=== PATIENT | male | born 1940 | race Caucasian/White ===

== ENCOUNTER → 2017-05-12 | Outpatient (CLI) | payer MEDICARE, OTHER | END | disposition home or self-care (01) | LOC: KCIC MRI 14:15 | DX: M48.061 Spinal stenosis, lumbar region without neurogenic claudication (principal); M51.26 Other intervertebral disc displacement, lumbar region; M51.27 Other intervertebral disc displacement, lumbosacral region; M41.86 Other forms of scoliosis, lumbar region; M47.896 Other spondylosis, lumbar region; M25.78 Osteophyte, vertebrae; M51.47 Schmorl's nodes, lumbosacral region | CPT/HCPCS: 72148 ==

== ENCOUNTER → 2017-06-14 | Outpatient (CLI) | payer MEDICARE, OTHER ==
[~2017-06-14] MED LIST: IOHEXOL 180 MG/ML 10 ML VIAL.; methylPREDNISolone ACETATE 40 MG/ML VIAL.; methylPREDNISolone ACETATE 80 MG/ML VIAL.
== END ==
LOC: PNCL 09:40
DX: M51.16 Intervertebral disc disorders with radiculopathy, lumbar region (principal); M48.061 Spinal stenosis, lumbar region without neurogenic claudication; E11.9 Type 2 diabetes mellitus without complications; I10 Essential (primary) hypertension; I25.10 Atherosclerotic heart disease of native coronary artery without angina pectoris; K21.9 Gastro-esophageal reflux disease without esophagitis; M19.90 Unspecified osteoarthritis, unspecified site; Z85.46 Personal history of malignant neoplasm of prostate; Z95.5 Presence of coronary angioplasty implant and graft; Z88.1 Allergy status to other antibiotic agents; Z88.6 Allergy status to analgesic agent; Z82.49 Family history of ischemic heart disease and other diseases of the circulatory system; Z83.3 Family history of diabetes mellitus; Z82.3 Family history of stroke; Z79.82 Long term (current) use of aspirin; Z79.84 Long term (current) use of oral hypoglycemic drugs; Z79.899 Other long term (current) drug therapy
CPT/HCPCS: 62323; J1030; J1040; Q9965

== ENCOUNTER → 2017-06-28 | Outpatient (CLI) | payer MEDICARE, OTHER | END | disposition home or self-care (01) | LOC: PNCL 09:40 | DX: M51.16 Intervertebral disc disorders with radiculopathy, lumbar region (principal); M48.061 Spinal stenosis, lumbar region without neurogenic claudication; Z79.82 Long term (current) use of aspirin; Z79.899 Other long term (current) drug therapy | CPT/HCPCS: G0463 ==

== ENCOUNTER 2017-09-14 07:49 | Emergency (ER) | payer MEDICARE, OTHER ==
[2017-09-14] MEDS: ASPIRIN 325 MG TABLET PO ×2 (08:47)
[2017-09-14] MEDS: IV NORMAL SALINE 1000ML BAG 1,000 ML IV ×2 (08:48)
[2017-09-14 08:51] LABS: ADD MAN DIFF? NO
[2017-09-14] MEDS: fentaNYL PF VIAL 100 MCG/2 ML VIAL IV ×6 (08:52→10:43)
[2017-09-14 08:57] LABS: BASO # 0.2 x10^3/uL (0.0-0.2); BASO % 3 % (0-3); EOS # 0.6 x10^3/uL (0.0-0.7); EOS % 8 % (0-3); HEMOGLOBIN 14.5 g/dL (13.0-17.5); LYMPH # 1.9 x10^3/uL (1.0-4.8); LYMPH % 26 % (24-48); MEAN CORPUSCULAR HEMOGLOBIN 34 pg (25-35); MEAN CORPUSCULAR HGB CONC 35 g/dL (31-37); MEAN CORPUSCULAR VOLUME 99 fL (79-100); MONO # 0.8 x10^3/uL (0.0-1.1); MONO % 11 % (0-9); NEUT # 3.9 x10^3uL (1.8-7.7); NEUT % 52 % (31-73); PLATELET COUNT 229 x10^3/uL (140-400); RED BLOOD COUNT 4.26 x10^6/uL (4.30-5.70); RED CELL DISTRIBUTION WIDTH 13.3 % (11.5-14.5); WHITE BLOOD COUNT 7.4 x10^3/uL (4.0-11.0)
[2017-09-14] MEDS: LABETALOL 20 MG/4 ML DISP.SYRIN. IVP ×2 (08:58)
[2017-09-14 09:04] LABS: PROTHROMBIN TIME PATIENT 12.5 SEC (11.7-14.0)
[2017-09-14 09:05] LABS: ANION GAP 11 (6-14); BLOOD UREA NITROGEN 14 mg/dL (8-26); BUN/CREATININE RATIO 10 (6-20); CALCIUM 10.4 mg/dL (8.5-10.1); CARBON DIOXIDE 26 mmol/L (21-32); CHLORIDE 101 mmol/L (98-107); CREATININE 1.4 mg/dL (0.7-1.3); GFR 48.9; GLUCOSE 213 mg/dL (70-99); SODIUM 138 mmol/L (136-145)
[2017-09-14 09:11] LABS: ALBUMIN 4.2 g/dL (3.4-5.0); ALBUMIN/GLOBULIN RATIO 1.1 (1.0-1.7); ALK PHOS 86 U/L (46-116); ALT (SGPT) 34 U/L (16-63); AST (SGOT) 40 U/L (15-37); LIPASE 101 U/L (73-393); MAGNESIUM 2.1 mg/dL (1.8-2.4); TOTAL BILIRUBIN 0.7 mg/dL (0.2-1.0); TOTAL PROTEIN 8.1 g/dL (6.4-8.2)
[2017-09-14 09:15] LABS: TROPONINI 2.818 ng/mL (0.000-0.055)
[2017-09-14] MEDS ORDERED: CONTRAST GIVEN. MC ×2 (09:15)
[2017-09-14 09:16] LABS: D-DIMER 1.17 ug/mlFEU (0.00-0.50)
[2017-09-14 09:19] LABS: NT-PRO BNP 735 pg/mL (0-449)
[2017-09-14 09:19] LABS: CKMB INDEX 5.7 % (0-4); CKMB MASS 16.6 ng/mL (0.0-3.6); CREATINE KINASE 289 U/L (39-308)
[2017-09-14] MEDS: IOHEXOL 300 MG/ML 100ML VIAL. IV ×2 (09:20)
[2017-09-14] MEDS ORDERED: ANTI-COAG MONITOR BY PHARMACY. MC ×2 (09:45)
[2017-09-14] MEDS ORDERED: HEPARIN for IV BOLUS 10,000 UNIT/10 ML VIAL. IV ×2 (09:45)
[2017-09-14] MEDS: HEPARIN for IV BOLUS 10,000 UNIT/10 ML VIAL. IV ×2 (09:55)
[2017-09-14] MEDS: HEPARIN 25,000UTS/500ML PREMIX 500 ML IV ×2 (09:59)
== END 2017-09-14 10:38 | disposition short-term general hospital (02) ==
LOC: ER 07:49
DX: I24.9 Acute ischemic heart disease, unspecified (principal); I21.9 Acute myocardial infarction, unspecified; E78.00 Pure hypercholesterolemia, unspecified; E11.9 Type 2 diabetes mellitus without complications; I10 Essential (primary) hypertension; I25.10 Atherosclerotic heart disease of native coronary artery without angina pectoris; Z79.82 Long term (current) use of aspirin; Z95.5 Presence of coronary angioplasty implant and graft; Z88.1 Allergy status to other antibiotic agents; Z88.5 Allergy status to narcotic agent
CPT/HCPCS: 36415; 71045; 71275; 80053; 82553; 83690; 83735; 83880; 84484; 85025; 85379; 85610; 93005; 96365; 96375; 96376; 99291-25; J1644; J3010; J3490; J7030; Q9967

== ENCOUNTER 2019-01-05 14:03 | Inpatient (IN) | payer MEDICARE, OTHER ==
[~2019-01-05] VITALS: Ht 170.2 cm; Wt 85.4 kg
[~2019-01-05 14:03] MED LIST changes: +ASPI-482 PO; +ASPI325T8 PO; +ATOR40TA59 PO; +GABA300C18 PO; +GLIP5TAB22 PO; -IOHEXOL 180 MG/ML 10 ML VIAL.; +LISI-334 PO; +METO50TA6 PO; +OMEP40CA45 PO; +TRAZ-86 PO; -methylPREDNISolone ACETATE 40 MG/ML VIAL.; -methylPREDNISolone ACETATE 80 MG/ML VIAL.
[2019-01-05] MEDS ORDERED: METOPROLOL TARTRATE 5 MG/5 ML VIAL. IVP ONE (14:15)
--- NOTE | 2019-01-05 14:21 | PHYS DOC ---
Past Medical History Past Medical History: CAD, Diabetes-Type II, High Cholesterol, Hypertension Past Surgical History: Angioplasty, Coronary Bypass Surgery, Knee Replacement, Tonsillectomy Additional Past Surgical Histo: cath with stents, right rotator cuff, left endarterectomy. rt elbow,prostat Alcohol Use: None Drug Use: None Adult General HPI HPI Patient is an 78-year-old male, with a past cardiac history, who presents to the emergency department for evaluation. He states that about an hour prior to arrival, he began experiencing some tightness in his chest, with radiation towards his left arm. The pain is somewhat similar, but not quite as intense, as his prior cardiac pain. The patient has had dyspnea on exertion, as well as exacerbation of this chest pain with exertion, and his chest pain did improve with some nitroglycerin. He denies shortness of breath at rest.He was administered aspirin by EMS. He has not had any cough, pleuritic pain, fevers, or chills. Other than as stated above, there are no alleviating or exacerbating factors to his symptoms. Review of Systems Review of Systems Constitutional: Denies fever or chills [] Eyes: Denies change in visual acuity, redness, or eye pain [] HENT: Denies nasal congestion or sore throat [] Respiratory: Denies cough or shortness of breath at rest [] Cardiovascular: No additional information not addressed in HPI [] GI: Denies abdominal pain, nausea, vomiting, bloody stools or diarrhea [] : Denies dysuria or hematuria [] Musculoskeletal: Denies back pain or joint pain [] Integument: Denies rash or skin lesions [] Neurologic: Denies headache, focal weakness or sensory changes [] Endocrine: Denies polyuria or polydipsia [] All other systems were reviewed and found to be within normal limits, except as documented in this note. Current Medications Current Medications Current Medications Medications (Trade) Dose Ordered Sig/Dede Start Time Stop Time Status Last Admin Dose Admin Heparin Sodium (Porcine) (Heparin Sodium) 4,000 unit 1X ONCE 01/05/19 15:15 01/05/19 15:16 Heparin Sodium/ Dextrose 500 ml @ 20 mls/hr CONT PRN 01/05/19 15:15 Metoprolol Tartrate (Lopressor Vial) 5 mg 1X ONCE 01/05/19 14:15 01/05/19 14:20 DC 01/05/19 14:43 5 MG Nitroglycerin (Nitrostat) 0.4 mg PRN Q5MIN PRN 01/05/19 14:15 01/06/19 14:14 Allergies Allergies Allergies Coded Allergies Type Severity Reaction Last Updated Verified Penicillins Allergy Intermediate 01/05/19 Yes erythromycin base Allergy Intermediate 06/14/17 Yes morphine Allergy Intermediate 06/14/17 Yes Physical Exam Physical Exam PHYSICAL EXAM: CONSTITUTIONAL: Well developed, well nourished HEAD: normocephalic, atraumatic EENT: PERRL, EOMI. Conjunctivae normal color, sclerae non-icteric; moist mucous membranes. NECK: Supple, non-tender; no meningismus. LUNGS: Lungs CTA, breathing even and unlabored. Normal air movement. HEART: Regular rate and rhythm, no murmur CHEST: No deformity; non-tender ABDOMEN: The abdomen is soft, and non-tender, no masses or bruits. EXTREM: Normal ROM; no deformity, no calf tenderness. Normal pulses palpable in all extremities. There is no pedal edema. SKIN: No rash; no diaphoresis NEURO: Alert; normal speech and cognition; CN's grossly intact; strength grossly intact without focal deficit. BACK: No CVA TTP. Current Patient Data Vital Signs Vital Signs Date Time Temp Pulse Resp B/P (MAP) Pulse Ox O2 Delivery O2 Flow Rate FiO2 01/05/19 14:43 68 165/78 01/05/19 14:03 99.0 18 Room Air 97.0 99.0 Lab Values Laboratory Tests Test 01/05/19 14:15 White Blood Count 9.8 x10^3/uL (4.0-11.0) Red Blood Count 4.16 x10^6/uL (4.30-5.70) L Hemoglobin 13.4 g/dL (13.0-17.5) Hematocrit 39.7 % (39.0-53.0) Mean Corpuscular Volume 96 fL (79-100) Mean Corpuscular Hemoglobin 32 pg (25-35) Mean Corpuscular Hemoglobin Concent 34 g/dL (31-37) Red Cell Distribution Width 13.9 % (11.5-14.5) Platelet Count 256 x10^3/uL (140-400) Neutrophils (%) (Auto) 65 % (31-73) Lymphocytes (%) (Auto) 20 % (24-48) L Monocytes (%) (Auto) 9 % (0-9) Eosinophils (%) (Auto) 5 % (0-3) H Basophils (%) (Auto) 0 % (0-3) Neutrophils # (Auto) 6.4 x10^3/uL (1.8-7.7) Lymphocytes # (Auto) 2.0 x10^3/uL (1.0-4.8) Monocytes # (Auto) 0.9 x10^3/uL (0.0-1.1) Eosinophils # (Auto) 0.5 x10^3/uL (0.0-0.7) Basophils # (Auto) 0.0 x10^3/uL (0.0-0.2) Prothrombin Time 11.9 SEC (11.7-14.0) Prothrombin Time INR 0.9 (0.8-1.1) Sodium Level 144 mmol/L (136-145) Potassium Level 3.5 mmol/L (3.5-5.1) Chloride Level 105 mmol/L (98-107) Carbon Dioxide Level 29 mmol/L (21-32) Anion Gap 10 (6-14) Blood Urea Nitrogen 11 mg/dL (8-26) Creatinine 1.4 mg/dL (0.7-1.3) H Estimated GFR (Cockcroft-Gault) 48.8 BUN/Creatinine Ratio 8 (6-20) Glucose Level 192 mg/dL (70-99) H Calcium Level 9.7 mg/dL (8.5-10.1) Magnesium Level 2.2 mg/dL (1.8-2.4) Total Bilirubin 0.6 mg/dL (0.2-1.0) Aspartate Amino Transferase (AST) 26 U/L (15-37) Alanine Aminotransferase (ALT) 24 U/L (16-63) Alkaline Phosphatase 85 U/L (46-116) Creatine Kinase 209 U/L (39-308) Creatine Kinase MB (Mass) 2.8 ng/mL (0.0-3.6) Creatine Kinase MB Relative Index 1.3 % (0-4) Troponin I Quantitative 0.326 ng/mL (0.000-0.055) QK-Thi-V-Type Natriuretic Peptide 1172 pg/mL (0-449) H Total Protein 8.9 g/dL (6.4-8.2) H Albumin 4.0 g/dL (3.4-5.0) Albumin/Globulin Ratio 0.8 (1.0-1.7) L Lipase 79 U/L (73-393) Laboratory Tests 01/05/19 14:15 Laboratory Tests 01/05/19 14:15 EKG EKG []Normal sinus rhythm a rate of 72 beats for minute, normal axis, normal intervals, motion artifact is present, there are nonspecific ST/T changes present without acute ischemic changes noted. Radiology/Procedures Radiology/Procedures [] PROCEDURE: PORTABLE CHEST 1V EXAM: Chest, single view. HISTORY: Chest pain. COMPARISON: CT angiogram dated 09/14/2017. FINDINGS: A frontal view of the chest is obtained. There is no infiltrate, pleural effusion or pneumothorax. There is a stable prominent cardiac silhouette and evidence of prior CABG. There are surgical clips within the left neck. There are surgical anchors within the left humeral head. IMPRESSION: No acute pulmonary finding. Course & Med Decision Making Course & Med Decision Making Pertinent Labs and Imaging studies reviewed. (See chart for details) []3:15 PM: The patient's condition remains stable. Cardiology was consulted, secondary to the elevated troponin, the patient will be started on a heparin drip, hospitalist will admit the patient. CRITICAL CARE TIME: [40] Minutes, excluding any procedures and care of other patients. Dragon Disclaimer Dragon Disclaimer This electronic medical record was generated, in whole or in part, using a voice recognition dictation system. Departure Departure Impression: Primary Impression: Chest pain Additional Impression: Acute coronary syndrome Disposition: 09 ADMITTED INPATIENT Admitting Physician: STACIE Condition: GUARDED Referrals: JANIE WAGNER MD (PCP) Problem Qualifiers ARIANNA HANKINS MD Jan 05, 2019 14:21
[2019-01-05 14:30] LABS: BASO % 0 % (0-3); EOS # 0.5 x10^3/uL (0.0-0.7); EOS % 5 % (0-3); HEMATOCRIT 39.7 % (39.0-53.0); HEMOGLOBIN 13.4 g/dL (13.0-17.5); LYMPH % 20 % (24-48); MEAN CORPUSCULAR HEMOGLOBIN 32 pg (25-35); MEAN CORPUSCULAR HGB CONC 34 g/dL (31-37); MEAN CORPUSCULAR VOLUME 96 fL (79-100); MONO # 0.9 x10^3/uL (0.0-1.1); MONO % 9 % (0-9); NEUT # 6.4 x10^3/uL (1.8-7.7); NEUT % 65 % (31-73); PLATELET COUNT 256 x10^3/uL (140-400); RED BLOOD COUNT 4.16 x10^6/uL (4.30-5.70); RED CELL DISTRIBUTION WIDTH 13.9 % (11.5-14.5); WHITE BLOOD COUNT 9.8 x10^3/uL (4.0-11.0)
[2019-01-05 14:41] LABS: CALCIUM 9.7 mg/dL (8.5-10.1); CREATININE 1.4 mg/dL (0.7-1.3); GFR 48.8; POTASSIUM 3.5 mmol/L (3.5-5.1)
[2019-01-05 14:42] LABS: PROTHROMBIN TIME PATIENT 11.9 SEC (11.7-14.0)
[2019-01-05 14:47] LABS: ALBUMIN/GLOBULIN RATIO 0.8 (1.0-1.7); MAGNESIUM 2.2 mg/dL (1.8-2.4); TOTAL BILIRUBIN 0.6 mg/dL (0.2-1.0); TOTAL PROTEIN 8.9 g/dL (6.4-8.2)
--- NOTE | 2019-01-05 15:06 | RAD ---
EXAM: Chest, single view. HISTORY: Chest pain. COMPARISON: CT angiogram dated 09/14/2017. FINDINGS: A frontal view of the chest is obtained. There is no infiltrate, pleural effusion or pneumothorax. There is a stable prominent cardiac silhouette and evidence of prior CABG. There are surgical clips within the left neck. There are surgical anchors within the left humeral head. IMPRESSION: No acute pulmonary finding. Electronically signed by: Purnima Wiggins MD (01/05/2019 3:03 PM) [place] [id number]
[2019-01-05] MEDS ORDERED: HEPARIN 25,000UTS/500ML PREMIX 500 ML IV PRN (15:15)
[2019-01-05] MEDS ORDERED: HEPARIN for IV BOLUS 10,000 UNIT/10 ML VIAL. IV ONE ×2 (15:15→17:30)
--- NOTE | 2019-01-05 15:16 | PDOC2 ---
NANO GUADALUPE INTERNAL CONTROLS CONSULTANT 01/05/19 1516: CARDIAC CONSULT DATE OF CONSULT Date of Consult DATE: 01/05/19 TIME: 15:13 REASON FOR CONSULT Reason for Consult: NSTEMI REFERRING PHYSICIAN Referring Physician: Clemencia SOURCE Source: Chart review, Patient HISTORY OF PRESENT ILLNESS HISTORY OF PRESENT ILLNESS This is a pleasant 78 yo male admitted for complains of chest pain. Reports that he has appointment with is PCP 11AM which he did not known so he was rushing to go t his appointment thinking that his appointment is at 1PM. He got there and he started having left chest tightness with left shoulder discomfort and tingling to his left hand. He was having SOA and felt nauseated. He was given SL NTG via EMS and ASA. His symptoms went away and came back in ED and another SL NTG was given. His BP is slightly elevated. He takes and plavix and was given coumadin at some point as well. He had stens placed with complex stenting per his description 4 months ago. He had CABG in the past. He sees Dr. Wallace in . PAST MEDICAL HISTORY Cardiovascular: CAD, HTN, Hyperlipidemia, Other (carotid artery disease) Pulmonary: Asthma CENTRAL NERVOUS SYSTEM: Other (No pertinent history) GI: No pertinent hx Heme/Onc: No pertinent hx Hepatobiliary: No pertinent hx Psych: No pertinent hx Musculoskeletal: Osteoarthritis Rheumatologic: No pertinent hx Infectious disease: No pertinent hx ENT: No pertinent hx Renal/: Chronic renal insuff Endocrine: Diabetes (2) Dermatology: No pertinent hx PAST SURGICAL HISTORY Past Surgical History: Arthroscopy (bilateral RTC repair), CABG, Total knee replacement (bilateral), Tonsillectomy, Other (PCI/stents; LCEA) FAMILY HISTORY Family History: Coronary Artery Disease SOCIAL HISTORY Smoke: No ALCOHOL: none Drugs: None Lives: with Family CURRENT MEDICATIONS CURRENT MEDICATIONS Current Medications Medications (Trade) Dose Ordered Sig/Dede Route PRN Reason Start Time Stop Time Status Last Admin Dose Admin Metoprolol Tartrate (Lopressor Vial) 5 mg 1X ONCE IVP 01/05/19 14:15 01/05/19 14:20 DC 01/05/19 14:43 ALLERGIES ALLERGIES: Coded Allergies: Penicillins (Verified Allergy, Intermediate, 01/05/19) erythromycin base (Verified Allergy, Intermediate, 06/14/17) morphine (Verified Allergy, Intermediate, 06/14/17) ROS Review of System 14 point ROS evaluated with pertinent positives noted per HPI PHYSICAL EXAM General: Alert, Oriented X3, Cooperative, No acute distress HEENT: Atraumatic, Mucous membr. moist/pink Lungs: Clear to auscultation, Normal air movement Heart: Regular rate (SR), Normal S1, Normal S2, Other (3/6 systolic murmur to BHUMIKA border) Abdomen: Soft, No tenderness Extremities: No cyanosis, No edema Skin: No significant lesion Neuro: Normal speech, Sensation intact Psych/Mental Status: Mental status NL, Mood NL MUSCULOSKELETAL: Osteoarthritic changes both hands VITALS/I&O VITALS/I&O: Vital Signs Date Time Temp Pulse Resp B/P (MAP) Pulse Ox O2 Delivery O2 Flow Rate FiO2 01/05/19 14:43 68 165/78 01/05/19 14:03 99.0 18 Room Air 97.0 99.0 LABS Lab: Laboratory Tests Test 01/05/19 14:15 White Blood Count 9.8 x10^3/uL (4.0-11.0) Red Blood Count 4.16 x10^6/uL (4.30-5.70) L Hemoglobin 13.4 g/dL (13.0-17.5) Hematocrit 39.7 % (39.0-53.0) Mean Corpuscular Volume 96 fL (79-100) Mean Corpuscular Hemoglobin 32 pg (25-35) Mean Corpuscular Hemoglobin Concent 34 g/dL (31-37) Red Cell Distribution Width 13.9 % (11.5-14.5) Platelet Count 256 x10^3/uL (140-400) Neutrophils (%) (Auto) 65 % (31-73) Lymphocytes (%) (Auto) 20 % (24-48) L Monocytes (%) (Auto) 9 % (0-9) Eosinophils (%) (Auto) 5 % (0-3) H Basophils (%) (Auto) 0 % (0-3) Neutrophils # (Auto) 6.4 x10^3/uL (1.8-7.7) Lymphocytes # (Auto) 2.0 x10^3/uL (1.0-4.8) Monocytes # (Auto) 0.9 x10^3/uL (0.0-1.1) Eosinophils # (Auto) 0.5 x10^3/uL (0.0-0.7) Basophils # (Auto) 0.0 x10^3/uL (0.0-0.2) Prothrombin Time 11.9 SEC (11.7-14.0) Prothrombin Time INR 0.9 (0.8-1.1) Sodium Level 144 mmol/L (136-145) Potassium Level 3.5 mmol/L (3.5-5.1) Chloride Level 105 mmol/L (98-107) Carbon Dioxide Level 29 mmol/L (21-32) Anion Gap 10 (6-14) Blood Urea Nitrogen 11 mg/dL (8-26) Creatinine 1.4 mg/dL (0.7-1.3) H Estimated GFR (Cockcroft-Gault) 48.8 BUN/Creatinine Ratio 8 (6-20) Glucose Level 192 mg/dL (70-99) H Calcium Level 9.7 mg/dL (8.5-10.1) Magnesium Level 2.2 mg/dL (1.8-2.4) Total Bilirubin 0.6 mg/dL (0.2-1.0) Aspartate Amino Transferase (AST) 26 U/L (15-37) Alanine Aminotransferase (ALT) 24 U/L (16-63) Alkaline Phosphatase 85 U/L (46-116) Creatine Kinase 209 U/L (39-308) Creatine Kinase MB (Mass) 2.8 ng/mL (0.0-3.6) Creatine Kinase MB Relative Index 1.3 % (0-4) Troponin I Quantitative 0.326 ng/mL (0.000-0.055) WV-Ale-J-Type Natriuretic Peptide 1172 pg/mL (0-449) H Total Protein 8.9 g/dL (6.4-8.2) H Albumin 4.0 g/dL (3.4-5.0) Albumin/Globulin Ratio 0.8 (1.0-1.7) L Lipase 79 U/L (73-393) Laboratory Tests 01/05/19 14:15 Laboratory Tests 01/05/19 14:15 ASSESSMENT/PLAN ASSESSMENT/PLAN 1. NTSEMI 2. CAD: past CABG. PCI/complex stents 4 months ago 3. HTN: labile 4. HLP 5. DM2 6. Obesity 7. Warfarin therapy: claims taking warfarin but possibly DCd a while back since INR is 0.9 and manages his meds. No indication per hx. Recommendations 1. LHC today, risks and benefits discussed and agreeable to proceed 2. ASA. NTG. Heparin drip 3. Will reeval meds post LHC. Continue with secondary prevention measures. 4. Labetolol IV PRN 5. TTE, lipids, TSH NIEVES ARNOLD MD 01/06/192121: CARDIAC CONSULT ASSESSMENT/PLAN ASSESSMENT/PLAN Late entry for 01/05/2019 Pt. seen and examined. Agree with above FILM DEVELOPER note. LHC with recurrent ISR. s/p PCI and PTCA Needs to comply with medical therapy. NANO GUADALUPE APRN Jan 05, 2019 15:16 NIEVES ARNOLD MD Jan 06, 2019 21:22
[2019-01-05] MEDS: NITROGLYCERIN SUBLINGUAL 0.4 MG BOTTLE OF 25. SL PRN (15:26)
--- NOTE | 2019-01-05 15:29 | PDOC1 ---
History and Physical Date of Admission Date of Admission DATE: 01/05/19 TIME: 15:28 Identification/Chief Complaint Chief Complaint SEEN IN ER , 78-year-old male, with a past cardiac history, who presents to the emergency department for evaluation. states that about an hour prior to arrival, he began experiencing some tightness in his chest, with radiation towards his left arm. The pain is somewhat similar, but not quite as intense, as his prior cardiac pain. patient has had dyspnea on exertion, as well as exacerbation of this chest pain with exertion, and his chest pain did improve with some nitroglycerin. He denies shortness of breath at rest.He was administered aspirin by EMS. He has not had any cough, pleuritic pain, fevers, or chills Past Medical History Past Medical History Past Medical History Past Medical History: CAD, Diabetes-Type II, High Cholesterol, Hypertension Past Surgical History: Angioplasty, Coronary Bypass Surgery, Knee Replacement, Tonsillectomy Additional Past Surgical Histo: cath with stents, right rotator cuff, left endarterectomy. rt elbow,prostat Alcohol Use: None Drug Use: None FHX OBESITY Cardiovascular: CAD, HTN, Hyperlipidemia, Other (carotid artery disease) Musculoskeletal: Osteoarthritis Infectious disease: No pertinent hx Endocrine: Diabetes (2) Past Surgical History Past Surgical History: Arthroscopy (Right RTC repair), CABG, Total knee replacement, Tonsillectomy, Other (PCI/stents; LCEA) Family History Family History: High Cholestrol, Hypertension Social History Smoke: No ALCOHOL: none Drugs: None Current Problem List Problem List Problems Medical Problems: (1) Acute coronary syndrome Status: Acute (2) Chest pain Status: Acute Current Medications Current Medications Current Medications Nitroglycerin (Nitrostat) 0.4 mg PRN Q5MIN PRN SL CP RATING > 1/10 Last administered on 01/05/19at 15:26; Start 01/05/19 at 14:15; Stop 01/06/19 at 14:14 Metoprolol Tartrate (Lopressor Vial) 5 mg 1X ONCE IVP Last administered on 01/05/19at 14:43; Start 01/05/19 at 14:15; Stop 01/05/19 at 14:20; Status DC Heparin Sodium (Porcine) (Heparin Sodium) 4,000 unit 1X ONCE IV Last administered on 01/05/19at 15:23; Start 01/05/19 at 15:15; Stop 01/05/19 at 15:16; Status DC Heparin Sodium/ Dextrose 500 ml @ 20 mls/hr CONT PRN IV SEE COMMENTS Last administered on 01/05/19at 15:25; Start 01/05/19 at 15:15 Active Scripts Active Reported Aspirin 325 Mg Tablet 1 Tab PO DAILY Trazodone Hcl 100 Mg Tablet 1 Tab PO QHS Omeprazole 40 Mg Capsule.dr 1 Cap PO DAILY Metoprolol Tartrate 50 Mg Tablet 1 Tab PO BID Lisinopril 20 Mg Tablet 1 Tab PO BID Glipizide Er (Glipizide) 5 Mg Tab.er.24 1 Tab PO DAILY Gabapentin 300 Mg Capsule 300 Mg PO BID Atorvastatin Calcium 40 Mg Tablet 1 Tab PO DAILY Allergies Allergies: Coded Allergies: Penicillins (Verified Allergy, Intermediate, 01/05/19) erythromycin base (Verified Allergy, Intermediate, 06/14/17) morphine (Verified Allergy, Intermediate, 06/14/17) ROS Review of System Review of Systems Review of Systems Constitutional: Denies fever or chills [] Eyes: Denies change in visual acuity, redness, or eye pain [] HENT: Denies nasal congestion or sore throat [] Respiratory: Denies cough or shortness of breath at rest [] Cardiovascular: No additional information not addressed in HPI [] GI: Denies abdominal pain, nausea, vomiting, bloody stools or diarrhea [] : Denies dysuria or hematuria [] Musculoskeletal: Denies back pain or joint pain [] Integument: Denies rash or skin lesions [] Neurologic: Denies headache, focal weakness or sensory changes [] Endocrine: Denies polyuria or polydipsia [] 14 PT systems were reviewed and found to be within normal limits, except as documented . Cardiovascular: yes Chest Pain Physical Exam Physical Exam Physical Exam Physical Exam PHYSICAL EXAM: CONSTITUTIONAL: Well developed, well nourished HEAD: normocephalic, atraumatic EENT: PERRL, EOMI. Conjunctivae normal color, sclerae non-icteric; moist mucous membranes. NECK: Supple, non-tender; no meningismus. LUNGS: Lungs CTA, breathing even and unlabored. Normal air movement. HEART: Regular rate and rhythm, no murmur CHEST: No deformity; non-tender ABDOMEN: The abdomen is soft, and non-tender, no masses or bruits. EXTREM: Normal ROM; no deformity, no calf tenderness. Normal pulses palpable in all extremities. There is no pedal edema. SKIN: No rash; no diaphoresis NEURO: Alert; normal speech and cognition; CN's grossly intact; strength grossly intact without focal deficit. BACK: No CVA TTP. General: Alert, Oriented X3, Cooperative, No acute distress HEENT: EOMI, Mucous membr. moist/pink Lungs: Normal air movement Abdomen: Normal bowel sounds, Soft Rectal Exam: not examined PELVIC: Examination not indicated Extremities: No cyanosis Neuro: Normal speech, Cranial nerves 3-12 NL Psych/Mental Status: Mental status NL, Mood NL Vitals Vitals Vital Signs Date Time Temp Pulse Resp B/P (MAP) Pulse Ox O2 Delivery O2 Flow Rate FiO2 01/05/19 15:26 65 173/80 01/05/19 14:03 99.0 18 Room Air 97.0 99.0 Labs Labs Laboratory Tests Test 01/05/19 14:15 White Blood Count 9.8 x10^3/uL (4.0-11.0) Red Blood Count 4.16 x10^6/uL (4.30-5.70) Hemoglobin 13.4 g/dL (13.0-17.5) Hematocrit 39.7 % (39.0-53.0) Mean Corpuscular Volume 96 fL (79-100) Mean Corpuscular Hemoglobin 32 pg (25-35) Mean Corpuscular Hemoglobin Concent 34 g/dL (31-37) Red Cell Distribution Width 13.9 % (11.5-14.5) Platelet Count 256 x10^3/uL (140-400) Neutrophils (%) (Auto) 65 % (31-73) Lymphocytes (%) (Auto) 20 % (24-48) Monocytes (%) (Auto) 9 % (0-9) Eosinophils (%) (Auto) 5 % (0-3) Basophils (%) (Auto) 0 % (0-3) Neutrophils # (Auto) 6.4 x10^3/uL (1.8-7.7) Lymphocytes # (Auto) 2.0 x10^3/uL (1.0-4.8) Monocytes # (Auto) 0.9 x10^3/uL (0.0-1.1) Eosinophils # (Auto) 0.5 x10^3/uL (0.0-0.7) Basophils # (Auto) 0.0 x10^3/uL (0.0-0.2) Prothrombin Time 11.9 SEC (11.7-14.0) Prothromb Time International Ratio 0.9 (0.8-1.1) Sodium Level 144 mmol/L (136-145) Potassium Level 3.5 mmol/L (3.5-5.1) Chloride Level 105 mmol/L (98-107) Carbon Dioxide Level 29 mmol/L (21-32) Anion Gap 10 (6-14) Blood Urea Nitrogen 11 mg/dL (8-26) Creatinine 1.4 mg/dL (0.7-1.3) Estimated GFR (Cockcroft-Gault) 48.8 BUN/Creatinine Ratio 8 (6-20) Glucose Level 192 mg/dL (70-99) Calcium Level 9.7 mg/dL (8.5-10.1) Magnesium Level 2.2 mg/dL (1.8-2.4) Total Bilirubin 0.6 mg/dL (0.2-1.0) Aspartate Amino Transf (AST/SGOT) 26 U/L (15-37) Alanine Aminotransferase (ALT/SGPT) 24 U/L (16-63) Alkaline Phosphatase 85 U/L (46-116) Creatine Kinase 209 U/L (39-308) Creatine Kinase MB (Mass) 2.8 ng/mL (0.0-3.6) Creatine Kinase MB Relative Index 1.3 % (0-4) Troponin I Quantitative 0.326 ng/mL (0.000-0.055) UJ-Euh-S-Type Natriuretic Peptide 1172 pg/mL (0-449) Total Protein 8.9 g/dL (6.4-8.2) Albumin 4.0 g/dL (3.4-5.0) Albumin/Globulin Ratio 0.8 (1.0-1.7) Lipase 79 U/L (73-393) Laboratory Tests Test 01/05/19 14:15 White Blood Count 9.8 x10^3/uL (4.0-11.0) Red Blood Count 4.16 x10^6/uL (4.30-5.70) Hemoglobin 13.4 g/dL (13.0-17.5) Hematocrit 39.7 % (39.0-53.0) Mean Corpuscular Volume 96 fL (79-100) Mean Corpuscular Hemoglobin 32 pg (25-35) Mean Corpuscular Hemoglobin Concent 34 g/dL (31-37) Red Cell Distribution Width 13.9 % (11.5-14.5) Platelet Count 256 x10^3/uL (140-400) Neutrophils (%) (Auto) 65 % (31-73) Lymphocytes (%) (Auto) 20 % (24-48) Monocytes (%) (Auto) 9 % (0-9) Eosinophils (%) (Auto) 5 % (0-3) Basophils (%) (Auto) 0 % (0-3) Neutrophils # (Auto) 6.4 x10^3/uL (1.8-7.7) Lymphocytes # (Auto) 2.0 x10^3/uL (1.0-4.8) Monocytes # (Auto) 0.9 x10^3/uL (0.0-1.1) Eosinophils # (Auto) 0.5 x10^3/uL (0.0-0.7) Basophils # (Auto) 0.0 x10^3/uL (0.0-0.2) Prothrombin Time 11.9 SEC (11.7-14.0) Prothromb Time International Ratio 0.9 (0.8-1.1) Sodium Level 144 mmol/L (136-145) Potassium Level 3.5 mmol/L (3.5-5.1) Chloride Level 105 mmol/L (98-107) Carbon Dioxide Level 29 mmol/L (21-32) Anion Gap 10 (6-14) Blood Urea Nitrogen 11 mg/dL (8-26) Creatinine 1.4 mg/dL (0.7-1.3) Estimated GFR (Cockcroft-Gault) 48.8 BUN/Creatinine Ratio 8 (6-20) Glucose Level 192 mg/dL (70-99) Calcium Level 9.7 mg/dL (8.5-10.1) Magnesium Level 2.2 mg/dL (1.8-2.4) Total Bilirubin 0.6 mg/dL (0.2-1.0) Aspartate Amino Transf (AST/SGOT) 26 U/L (15-37) Alanine Aminotransferase (ALT/SGPT) 24 U/L (16-63) Alkaline Phosphatase 85 U/L (46-116) Creatine Kinase 209 U/L (39-308) Creatine Kinase MB (Mass) 2.8 ng/mL (0.0-3.6) Creatine Kinase MB Relative Index 1.3 % (0-4) Troponin I Quantitative 0.326 ng/mL (0.000-0.055) SJ-Jys-B-Type Natriuretic Peptide 1172 pg/mL (0-449) Total Protein 8.9 g/dL (6.4-8.2) Albumin 4.0 g/dL (3.4-5.0) Albumin/Globulin Ratio 0.8 (1.0-1.7) Lipase 79 U/L (73-393) VTE Prophylaxis Ordered VTE Prophylaxis Devices: No VTE Pharmacological Prophylaxi: Yes Assessment/Plan Assessment/Plan ASSESSMENT 1. NTSEMI, ACUTE 2. CAD: past CABG. PCI/complex stents 6 GLASS GLAZIER 3. HTN: labile 4. HYPERLIPIDEMIA 5. DM2 6. Obesity 7. Warfarin RX HX PLAN ICU BED [facility]. NTG. lipids, TSH 33 MIN CC TIME NILA JONES MD Jan 05, 2019 15:29
--- NOTE | 2019-01-05 15:35 | EKG ---
[facility] [address] [place] [address] Test Date: 2019-01-05 Test Time: 14:08:50 Pat Name: YOHANNES MARIA Department: Room: Gender: M Formula Weigher: : 1940 Requested By: ARIANNA HANKINS Order Number: [id number] Reading MD: Diaz Benitez MD Measurements Intervals [place] Rate: 71 P: MI: QRS: 40 QRSD: 86 T: -79 QT: 418 QTc: 459 Interpretive Statements SR NON-SPECIFIC ST/T CHANGES Electronically Signed On 01-16-2019 14:38:18 CDT by Diaz Benitez MD
[2019-01-05] MEDS ORDERED: LIDOCAINE 1% Multi-Dose 20 ML VIAL. ONE (15:55)
[2019-01-05] MEDS ORDERED: IODIXANOL 320 MG/ML 100 ML VIAL. ONE ×2 (15:55→16:31)
[2019-01-05] MEDS ORDERED: MIDAZOLAM HCL/PF 2 MG/2 ML VIAL. ONE (15:58)
[2019-01-05] MEDS ORDERED: fentaNYL PF VIAL 100 MCG/2 ML VIAL ONE (15:58)
[2019-01-05] MEDS ORDERED: HEPARIN for IV BOLUS 10,000 UNIT/10 ML VIAL. ONE (16:29)
[2019-01-05] MEDS ORDERED: VERAPAMIL 5 MG/2 ML VIAL. ONE ×2 (16:32→17:00)
[2019-01-05] MEDS ORDERED: NITROPRUSSIDE SODIUM 50 MG/2 ML VIAL IV ONE (16:32)
[2019-01-05] MEDS ORDERED: TICAGRELOR 90 MG TABLET. ONE (17:00)
[2019-01-05] MEDS ORDERED: NITROGLYCERIN 200 MCG/2 ML SYRINGE FOR CATH/VASC LAB. IART ONE (17:30)
[2019-01-05] MEDS ORDERED: LIDOCAINE 1% Multi-Dose 20 ML VIAL. INJ ONE (17:30)
[2019-01-05] MEDS ORDERED: NITROPRUSSIDE 100MCG/ML SYRINGE. INT CORON ONE (17:30)
[2019-01-05] MEDS ORDERED: MIDAZOLAM HCL/PF 2 MG/2 ML VIAL. IV ONE (17:30)
[2019-01-05] MEDS ORDERED: fentaNYL PF VIAL 100 MCG/2 ML VIAL IV ONE (17:30)
[2019-01-05] MEDS ORDERED: TICAGRELOR 90 MG TABLET. PO ONE (17:30)
[2019-01-05] MEDS ORDERED: IODIXANOL 320 MG/ML 100 ML VIAL. IART ONE (17:30)
[2019-01-05] MEDS ORDERED: VERAPAMIL 5 MG/2 ML VIAL. IART ONE (17:30)
[2019-01-05 17:50] VITALS: BP 161/79
[2019-01-05 18:00] VITALS: BP 155/82
[2019-01-05] MEDS ORDERED: NITR1PAT73 TD (18:12)
[2019-01-05] MEDS ORDERED: ASPI-630 PO (18:12)
[2019-01-05] MEDS ORDERED: AMLO5TAB10 PO (18:12)
[2019-01-05] MEDS ORDERED: CLOP75TA PO (18:12)
[2019-01-05] MEDS ORDERED: NITR0.4T24 SL (18:12)
[2019-01-05] MEDS ORDERED: GABA-585 PO (18:12)
[2019-01-05 18:15] VITALS: BP 169/95
[2019-01-05 18:30] VITALS: BP 161/75
[2019-01-05 19:00] VITALS: BP 167/77
[2019-01-05 23:00] VITALS: BP 182/113
[2019-01-06] MEDS ORDERED: ALPRAZolam 0.5 MG TABLET PO PRN (02:30)
[2019-01-06] MEDS ORDERED: LABETALOL 20 MG/4 ML DISP.SYRIN. IVP PRN (02:30)
[2019-01-06] MEDS: NITROGLYCERIN SUBLINGUAL 0.4 MG BOTTLE OF 25. SL PRN ×4 (02:34→14:25)
[2019-01-06] MEDS ORDERED: ACETAMINOPHEN 325 MG TABLET. PO PRN (02:45)
[2019-01-06 03:00] VITALS: BP 176/89
[2019-01-06] MEDS ORDERED: traZODone 50 MG TABLET. PO ONE (03:00)
--- NOTE | 2019-01-06 04:46 | NUR ---
Around 0145 pt. got really upset about not having his sleeping pill. I told him that I would call the DrCarmina and get him something, but he said that he was going home. I explained to him that it was not safe to go home b/c of the procedure he had. I called his daughter and she was going to come. I called Dr. Benitez and notified him of the patient's intention to leave. The charge nurse also went to talk w/ the pt. to try to calm him down. He managed to stay calm for almost 10 min then he got himself dressed and walked out to the nurses station ready to go home. He pulled out his IV and had blood dripping on the floor. We sat him in the rolling chair to cover and clean up the IV site. He started having sharp chest pain radiating down his arm. We got him back into bed, got an EKG and SL Nitro. He said that it helped after 2 doses. The daughter arrived and I updated her on his condition and she convinced him to stay. He was finally able to sleep and daughter left to go home and will be back early in the morning
[2019-01-06 07:00] VITALS: BP 150/70
--- NOTE | 2019-01-06 08:19 | EKG ---
[facility] [address] [place] [address] Test Date: 2019-01-06 Test Time: 08:24:49 Pat Name: YOHANNES MARIA Department: Room: 105 1 Gender: M Milling Machinist: SERA : 1940 Requested By: NIEVES ARNOLD Order Number: [id number] Reading MD: Nieves Arnold MD Measurements Intervals [place] Rate: 63 P: 40 SC: 164 QRS: 21 QRSD: 86 T: 179 QT: 460 QTc: 474 Interpretive Statements SR NON-SPECIFIC ST/T CHANGES Electronically Signed On 01-17-2019 10:03:38 CDT by Nieves Arnold MD
[2019-01-06 09:08] LABS: HEMATOCRIT 35.1 % (39.0-53.0); HEMOGLOBIN 11.9 g/dL (13.0-17.5); RED BLOOD COUNT 3.69 x10^6/uL (4.30-5.70); RED CELL DISTRIBUTION WIDTH 13.6 % (11.5-14.5); WHITE BLOOD COUNT 9.6 x10^3/uL (4.0-11.0)
[2019-01-06 09:18] LABS: CREATININE 1.3 mg/dL (0.7-1.3); GFR 53.1; POTASSIUM 3.1 mmol/L (3.5-5.1)
[2019-01-06] MEDS ORDERED: TICA90TA PO (09:56)
[2019-01-06] MEDS ORDERED: RIVA2.5T PO (09:56)
[2019-01-06] MEDS ORDERED: ONDANSETRON ODT 4 MG TAB.RAPDIS. PO PRN (10:15)
[2019-01-06] MEDS: RIVAROXABAN 10 MG TABLET. PO SCH ×2 (10:24→21:22)
[2019-01-06] MEDS: PANTOPRAZOLE 40 MG TABLET.DR. PO SCH (10:24)
[2019-01-06] MEDS: ASPIRIN CHEWABLE 81 MG TABLET. PO SCH (10:25)
[2019-01-06] MEDS: METOPROLOL SUCC 24HR ER 50 MG TAB.ER.24H. PO SCH (10:25)
[2019-01-06] MEDS: TICAGRELOR 90 MG TABLET. PO SCH ×2 (10:25→21:22)
[2019-01-06] MEDS: amLODIPine BESYLATE 5 MG TABLET PO SCH (10:25)
[2019-01-06] MEDS: NITROGLYCERIN 0.4MG/HR PATCH. TD SCH (10:38)
--- NOTE | 2019-01-06 10:57 | PDOC ---
NANO GUADALUPE PRACTICE ARCHITECT 01/06/19 1057: CARDIO Progress Notes Date and Time Date of Service 01/06/2019 Time of Evaluation 1040 Subjective Subjective: No shortness of breath, No Palpitations, Other (still having intermittent CP) Vitals Vitals Vital Signs Date Time Temp Pulse Resp B/P (MAP) Pulse Ox O2 Delivery O2 Flow Rate FiO2 01/06/19 10:25 72 189/93 01/06/19 03:00 98.8 24 96 98.8 01/05/19 23:00 Room Air 01/05/19 18:30 2.0 Weight Weight [ ] Input and Output Intake and Output Intake and Output 01/06/19 07:00 Intake Total 120 ml Output Total 300 ml Balance -180 ml Intake Oral 120 ml Output Urine Total 300 ml Laboratory Labs Laboratory Tests Test 01/05/19 14:15 01/05/19 16:34 01/05/19 17:18 01/05/19 18:15 White Blood Count 9.8 x10^3/uL (4.0-11.0) Red Blood Count 4.16 x10^6/uL (4.30-5.70) Hemoglobin 13.4 g/dL (13.0-17.5) Hematocrit 39.7 % (39.0-53.0) Mean Corpuscular Volume 96 fL (79-100) Mean Corpuscular Hemoglobin 32 pg (25-35) Mean Corpuscular Hemoglobin Concent 34 g/dL (31-37) Red Cell Distribution Width 13.9 % (11.5-14.5) Platelet Count 256 x10^3/uL (140-400) Neutrophils (%) (Auto) 65 % (31-73) Lymphocytes (%) (Auto) 20 % (24-48) Monocytes (%) (Auto) 9 % (0-9) Eosinophils (%) (Auto) 5 % (0-3) Basophils (%) (Auto) 0 % (0-3) Neutrophils # (Auto) 6.4 x10^3/uL (1.8-7.7) Lymphocytes # (Auto) 2.0 x10^3/uL (1.0-4.8) Monocytes # (Auto) 0.9 x10^3/uL (0.0-1.1) Eosinophils # (Auto) 0.5 x10^3/uL (0.0-0.7) Basophils # (Auto) 0.0 x10^3/uL (0.0-0.2) Prothrombin Time 11.9 SEC (11.7-14.0) Prothromb Time International Ratio 0.9 (0.8-1.1) Sodium Level 144 mmol/L (136-145) Potassium Level 3.5 mmol/L (3.5-5.1) Chloride Level 105 mmol/L (98-107) Carbon Dioxide Level 29 mmol/L (21-32) Anion Gap 10 (6-14) Blood Urea Nitrogen 11 mg/dL (8-26) Creatinine 1.4 mg/dL (0.7-1.3) Estimated GFR (Cockcroft-Gault) 48.8 BUN/Creatinine Ratio 8 (6-20) Glucose Level 192 mg/dL (70-99) Calcium Level 9.7 mg/dL (8.5-10.1) Magnesium Level 2.2 mg/dL (1.8-2.4) Total Bilirubin 0.6 mg/dL (0.2-1.0) Aspartate Amino Transf (AST/SGOT) 26 U/L (15-37) Alanine Aminotransferase (ALT/SGPT) 24 U/L (16-63) Alkaline Phosphatase 85 U/L (46-116) Creatine Kinase 209 U/L (39-308) Creatine Kinase MB (Mass) 2.8 ng/mL (0.0-3.6) Creatine Kinase MB Relative Index 1.3 % (0-4) Troponin I Quantitative 0.326 ng/mL (0.000-0.055) 1.384 ng/mL (0.000-0.055) UR-Yih-X-Type Natriuretic Peptide 1172 pg/mL (0-449) Total Protein 8.9 g/dL (6.4-8.2) Albumin 4.0 g/dL (3.4-5.0) Albumin/Globulin Ratio 0.8 (1.0-1.7) Lipase 79 U/L (73-393) Activated Clotting Time 316 sec (92-181) 320 sec (92-181) Test 01/05/19 20:33 01/05/19 22:30 01/06/19 08:34 01/06/19 10:30 Glucose (Fingerstick) 99 mg/dL (70-99) 120 mg/dL (70-99) Troponin I Quantitative 2.247 ng/mL (0.000-0.055) White Blood Count 9.6 x10^3/uL (4.0-11.0) Red Blood Count 3.69 x10^6/uL (4.30-5.70) Hemoglobin 11.9 g/dL (13.0-17.5) Hematocrit 35.1 % (39.0-53.0) Mean Corpuscular Volume 95 fL (79-100) Mean Corpuscular Hemoglobin 32 pg (25-35) Mean Corpuscular Hemoglobin Concent 34 g/dL (31-37) Red Cell Distribution Width 13.6 % (11.5-14.5) Platelet Count 219 x10^3/uL (140-400) Sodium Level 145 mmol/L (136-145) Potassium Level 3.1 mmol/L (3.5-5.1) Chloride Level 108 mmol/L (98-107) Carbon Dioxide Level 28 mmol/L (21-32) Anion Gap 9 (6-14) Blood Urea Nitrogen 11 mg/dL (8-26) Creatinine 1.3 mg/dL (0.7-1.3) Estimated GFR (Cockcroft-Gault) 53.1 Glucose Level 119 mg/dL (70-99) Calcium Level 9.0 mg/dL (8.5-10.1) Physical Exam HEENT: Neck Supple W Full Motion Chest: Symmetric LUNGS: Clear to Auscultation Heart: S1S2, RRR (SR) Abdomen: Soft N/T Extremities: No Calf Tenderness Neurology: alert, oriented, follow commands Assessment Assessment 1. NTSEMI: S/P PCI/MEGAN to severe ISR on SVG to RCA, denovo SVG to OM2 lesion with MEGAN. 3/3 bypass grafts patent 2. CAD: past CABG. PCI/complex stents 4 months ago. EF 55% 3. HTN: labile 4. HLP 5. DM2 6. Obesity 7. Noncompliance: reported by spouse and daughter Recommendations 1. 81 mg ASA, Brilinta and xarelto for 1 month then only brilinta and xarelto thereafter. Stop home plavix. 2. Continue with secondary prevention measures. Will start on lisinopril for better BP control and with his DM. Start on Ranexa 3. Still having CP with slightly labile BP, Trop trending down and EKG stable. Will start on ranexa. Continue current NTG and norvasc 4. Cardiac rehab 5. Follow up with Dr. Wallace with cardiology in 1 month. 6. Discussed with pt treatment compliance. 7. Replace K NIEVES ARNOLD MD 01/06/192122: CARDIO Progress Notes Plan Plan Pt. seen and examined. 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 Still has intermittent chest pain but significant improved from yesterday Supportive care. BP mgmt. Plans as above. Ok to DC tomorrow if stable and SBP less than 150 consistently. Thanks NANO GUADALUPE APRN Jan 06, 2019 10:57 NIEVES ARNOLD MD Jan 06, 2019 21:23
[2019-01-06 11:00] VITALS: BP 160/83
[2019-01-06] MEDS ORDERED: POTASSIUM CHLORIDE 20 MEQ TABLET.ER. PO ONE (11:45)
--- NOTE | 2019-01-06 11:57 | PDOC ---
[facility] PROGRESS NOTE Chief Complaint Chief Complaint Chest pain ACS History of Present Illness History of Present Illness 01/06/19 Pt was seen and examined in the ICU Pt is still confused and a poor historian and daughter were in the room and we discussed his cardiac stent and angioplasty. JAMIE RN Vitals/I&O Vitals/I&O: Vital Signs Date Time Temp Pulse Resp B/P (MAP) Pulse Ox O2 Delivery O2 Flow Rate FiO2 01/06/19 11:00 97.8 65 14 160/83 (108) 96 97.8 01/06/19 08:00 Room Air 01/05/19 18:30 2.0 I & O 01/05/19 01/05/19 01/06/19 14:59 22:59 06:59 Intake Total 120 ml Output Total 300 ml Balance -180 ml Physical Exam General: Alert, Oriented X3, Cooperative, No acute distress Heart: Regular rate (SR), Normal S1, Normal S2, Other (3/6 systolic murmur to R US border) Abdomen: Normal bowel sounds, Soft Extremities: No cyanosis Skin: No significant lesion Labs Labs: Laboratory Tests Test 01/05/19 14:15 01/05/19 16:34 01/05/19 17:18 01/05/19 18:15 White Blood Count 9.8 x10^3/uL (4.0-11.0) Red Blood Count 4.16 x10^6/uL (4.30-5.70) Hemoglobin 13.4 g/dL (13.0-17.5) Hematocrit 39.7 % (39.0-53.0) Mean Corpuscular Volume 96 fL (79-100) Mean Corpuscular Hemoglobin 32 pg (25-35) Mean Corpuscular Hemoglobin Concent 34 g/dL (31-37) Red Cell Distribution Width 13.9 % (11.5-14.5) Platelet Count 256 x10^3/uL (140-400) Neutrophils (%) (Auto) 65 % (31-73) Lymphocytes (%) (Auto) 20 % (24-48) Monocytes (%) (Auto) 9 % (0-9) Eosinophils (%) (Auto) 5 % (0-3) Basophils (%) (Auto) 0 % (0-3) Neutrophils # (Auto) 6.4 x10^3/uL (1.8-7.7) Lymphocytes # (Auto) 2.0 x10^3/uL (1.0-4.8) Monocytes # (Auto) 0.9 x10^3/uL (0.0-1.1) Eosinophils # (Auto) 0.5 x10^3/uL (0.0-0.7) Basophils # (Auto) 0.0 x10^3/uL (0.0-0.2) Prothrombin Time 11.9 SEC (11.7-14.0) Prothromb Time International Ratio 0.9 (0.8-1.1) Sodium Level 144 mmol/L (136-145) Potassium Level 3.5 mmol/L (3.5-5.1) Chloride Level 105 mmol/L (98-107) Carbon Dioxide Level 29 mmol/L (21-32) Anion Gap 10 (6-14) Blood Urea Nitrogen 11 mg/dL (8-26) Creatinine 1.4 mg/dL (0.7-1.3) Estimated GFR (Cockcroft-Gault) 48.8 BUN/Creatinine Ratio 8 (6-20) Glucose Level 192 mg/dL (70-99) Calcium Level 9.7 mg/dL (8.5-10.1) Magnesium Level 2.2 mg/dL (1.8-2.4) Total Bilirubin 0.6 mg/dL (0.2-1.0) Aspartate Amino Transf (AST/SGOT) 26 U/L (15-37) Alanine Aminotransferase (ALT/SGPT) 24 U/L (16-63) Alkaline Phosphatase 85 U/L (46-116) Creatine Kinase 209 U/L (39-308) Creatine Kinase MB (Mass) 2.8 ng/mL (0.0-3.6) Creatine Kinase MB Relative Index 1.3 % (0-4) Troponin I Quantitative 0.326 ng/mL (0.000-0.055) 1.384 ng/mL (0.000-0.055) ZW-Oko-W-Type Natriuretic Peptide 1172 pg/mL (0-449) Total Protein 8.9 g/dL (6.4-8.2) Albumin 4.0 g/dL (3.4-5.0) Albumin/Globulin Ratio 0.8 (1.0-1.7) Lipase 79 U/L (73-393) Activated Clotting Time 316 sec (92-181) 320 sec (92-181) Test 01/05/19 20:33 01/05/19 22:30 01/06/19 08:34 01/06/19 10:30 Glucose (Fingerstick) 99 mg/dL (70-99) 120 mg/dL (70-99) Troponin I Quantitative 2.247 ng/mL (0.000-0.055) White Blood Count 9.6 x10^3/uL (4.0-11.0) Red Blood Count 3.69 x10^6/uL (4.30-5.70) Hemoglobin 11.9 g/dL (13.0-17.5) Hematocrit 35.1 % (39.0-53.0) Mean Corpuscular Volume 95 fL (79-100) Mean Corpuscular Hemoglobin 32 pg (25-35) Mean Corpuscular Hemoglobin Concent 34 g/dL (31-37) Red Cell Distribution Width 13.6 % (11.5-14.5) Platelet Count 219 x10^3/uL (140-400) Sodium Level 145 mmol/L (136-145) Potassium Level 3.1 mmol/L (3.5-5.1) Chloride Level 108 mmol/L (98-107) Carbon Dioxide Level 28 mmol/L (21-32) Anion Gap 9 (6-14) Blood Urea Nitrogen 11 mg/dL (8-26) Creatinine 1.3 mg/dL (0.7-1.3) Estimated GFR (Cockcroft-Gault) 53.1 Glucose Level 119 mg/dL (70-99) Calcium Level 9.0 mg/dL (8.5-10.1) Review of Systems Review of Systems: Denies n/v/d Denies pain Assessment and Plan Assessmemt and Plan Problems Medical Problems: (1) Acute coronary syndrome Status: Acute (2) CAD (coronary artery disease) Status: Chronic (3) Chest pain Status: Acute (4) DM2 (diabetes mellitus, type 2) Status: Chronic (5) HLD (hyperlipidemia) Status: Chronic (6) HTN (hypertension) Status: Chronic (7) NSTEMI (non-ST elevated myocardial infarction) Status: Acute Assessment Chest pain NSTEMI Acute coronary syndrome Stent placement DM2 Htn Hyperlipidemia Plan ICU monitoring Serial EKGs DVT prophylaxis Home meds Continue labs Consult cardio Comment Review of Relevant I have reviewed the following items zaina (where applicable) has been applied. Medications: Current Medications Medications (Trade) Dose Ordered Sig/Dede Route PRN Reason Start Time Stop Time Status Last Admin Dose Admin Nitroglycerin (Nitrostat) 0.4 mg PRN Q5MIN PRN SL CP RATING > 1/10 01/05/19 14:15 01/06/19 10:01 DC 01/06/19 02:45 Metoprolol Tartrate (Lopressor Vial) 5 mg 1X ONCE IVP 01/05/19 14:15 01/05/19 14:20 DC 01/05/19 14:43 Heparin Sodium (Porcine) (Heparin Sodium) 4,000 unit 1X ONCE IV 01/05/19 15:15 01/05/19 15:16 DC 01/05/19 15:23 Heparin Sodium/ Dextrose 500 ml @ 20 mls/hr CONT PRN IV SEE COMMENTS 01/05/19 15:15 01/06/19 10:07 DC 01/05/19 15:25 Alprazolam (Xanax) 0.5 mg PRN Q8HRS PRN PO ANXIETY / AGITATION 01/06/19 02:30 01/06/19 02:55 Trazodone HCl (Desyrel) 25 mg 1X ONCE PO 01/06/19 03:00 01/06/19 03:01 DC 01/06/19 02:55 Acetaminophen (Tylenol) 650 mg PRN Q6HRS PRN PO MILD PAIN / TEMP 01/06/19 02:45 01/06/19 02:55 Amlodipine Besylate (Norvasc) 5 mg DAILY PO 01/06/19 11:00 01/06/19 10:25 Aspirin (Children'S Aspirin) 81 mg DAILY PO 01/06/19 11:00 01/06/19 10:25 Metoprolol Succinate (Toprol Xl) 50 mg DAILY PO 01/06/19 11:00 01/06/19 10:25 Nitroglycerin (Nitro-Dur 0.4mg) 1 patch DAILY TD 01/06/19 11:00 01/06/19 10:38 Ticagrelor (Brilinta) 90 mg BID PO 01/06/19 11:00 01/06/19 10:25 Pantoprazole Sodium (Protonix) 40 mg DAILYAC PO 01/06/19 11:30 01/06/19 10:24 Rivaroxaban (Xarelto) 2.5 mg BID PO 01/06/19 11:00 01/06/19 10:24 Ondansetron HCl (Zofran Odt) 4 mg PRN Q6HRS PRN PO NAUSEA/VOMITING 01/06/19 10:15 01/06/19 10:24 JORDIN MARADIAGA III DO Jan 06, 2019 11:57
--- NOTE | 2019-01-06 13:30 | NUR ---
Pt started having chest pain. States it feels like pressure on his chest but it is not radiating anywhere. Called BRIDGET Osorio and orders received for Stat Troponin and EKG and to give pt sublingual Nitro. EKG results called to Jo. Addendum: 01/06/19 at 1816 by CIARRA GOMEZ RN Pt does not have IV access due to being a hard stick. Anethesia attempted. BRIDGET Osorio was okay with no IV access due to pt possibly discharging today.
--- NOTE | 2019-01-06 13:36 | EKG ---
[address] [place] [address] Test Date: 2019-01-06 Test Time: 13:26:23 Pat Name: YOHANNES MARIA Department: Room: 105 1 Gender: M Storeroom Keeper: : 1940 Requested By: NANO GUADALUPE Order Number: [id number] Reading MD: Diaz Benitez MD Measurements Intervals [place] Rate: 71 P: 56 DE: 160 QRS: 56 QRSD: 84 T: 149 QT: 436 QTc: 479 Interpretive Statements SINUS RHYTHM NON-SPECIFIC ST/T CHANGES Electronically Signed On 01-17-2019 10:12:16 CDT by Diaz Benitez MD
--- NOTE | 2019-01-06 13:54 | CARD ---
MR#: [id number] Date of Study: 01/06/2019 Ordering Physician: NANO GUADALUPE, Referring Physician: NANO GUADALUPE Tech: Alberta Dominique THOMAS APPROVED REPORT EXAM: Two-dimensional and M-mode echocardiogram with Doppler and color Doppler. Other Information Quality : Technically LimitedHR: 63bpm Rhythm : NSRTechnically limited study due to pt unable to roll on left side. INDICATION Non STEMI 2D DIMENSIONS RVDd3.6 (2.9-3.5cm)Left Atrium(2D)4.5 (1.6-4.0cm) IVSd1.6 (0.7-1.1cm)Aortic Root(2D)3.5 (2.0-3.7cm) LVDd4.1 (3.9-5.9cm)LVOT Diameter2.2 (1.8-2.4cm) PWd1.0 (0.7-1.1cm)LVDs2.9 (2.5-4.0cm) FS (%) 28.7 %SV40.7 ml LVEF(%)55.7 (>50%) M-Mode DIMENSIONS Left Atrium(MM)4.03 (2.5-4.0cm)Aortic Root3.04 (2.2-3.7cm) Aortic Valve AoV Peak [place].253.8cm/sAoV VTI61.8cm AO Peak GR.25.8mmHgLVOT VTI 13.25cm AO Mean GR.19mmHgAVA (VTI)0.95cm2 Mitral Valve MV E Yvtbbqhg80.5cm/sMV DECEL [id number] MV A Spivobwa639.4cm/sE/A Ratio0.8 MV A [id number] TDI Lateral E' P. V7.85cm/sE/Lateral E'10.1 LEFT VENTRICLE The left ventricle is normal size. Proximal septal thickening is noted. Left ventricle systolic funct ion is low normal. The Ejection Fraction is 50-55%. There is moderate inferior wall hypokinesis. Bauer smitral Doppler flow pattern is Grade I-abnormal relaxation pattern. RIGHT VENTRICLE The right ventricle is normal size. There is normal right ventricular wall thickness. The right ventr icular systolic function is normal. ATRIA The left atrium is mildly dilated. The right atrium size is normal. The interatrial septum is intact with no evidence for an atrial septal defect or patent foramen ovale as noted on 2-D or Doppler imagi ng. AORTIC VALVE The aortic valve is severely calcified. The aortic valve is trileaflet. Doppler and Color Flow reveal ed mild aortic regurgitation. There is moderate valvular aortic stenosis. Calculated aortic valve are a is 1.0 cm2 with maximum pressure gradient of 26 mmHg and mean pressure gradient of 19 mmHg. MITRAL VALVE Mitral annular calcification is mild. There is no evidence of mitral valve prolapse. There is no mitr al valve stenosis. Doppler and Color-flow revealed trace mitral regurgitation. TRICUSPID VALVE The tricuspid valve is normal in structure and function. Doppler and Color Flow revealed no tricuspid valve regurgitation noted. There is no tricuspid valve prolapse or vegetation. There is no tricuspid valve stenosis. PULMONIC VALVE The pulmonic valve is not well visualized. GREAT VESSELS The aortic root is normal in size. The ascending aorta is normal in size. The IVC is normal in size a nd collapses >50% with inspiration. PERICARDIAL EFFUSION There is no evidence of significant pericardial effusion. Critical Notification Critical Value: No <Conclusion> Left ventricle systolic function is low normal. The Ejection Fraction is 50-55%. There is moderate inferior wall hypokinesis. There is moderate valvular aortic stenosis. Calculated aortic valve area is 1.0 cm2 with maximum pre ssure gradient of 26 mmHg and mean pressure gradient of 19 mmHg. Signed by : Diaz Benitez, Electronically Approved : 01/06/2019 12:27:41
--- NOTE | 2019-01-06 13:54 | CARD ---
MR#: [id number] Date of Study: 01/05/2019 Ordering Physician: NIEVES BENITEZ, Referring Physician: NIEVES BENITEZ, Tech: RT Marcella (R) APPROVED REPORT Technologist: RT Marcella (R) Nurse: Nadia Denny Procedure(s) performed: MODERATE SEDATION TIME: 49 MINUTES FLUORO TIME: 12 DOSE: 216 GYCM2 CONTRAST: 189 ml CORONARY ANGIOGRAPHY PCI OF SVG TO RCA PCI OF SVG TO OM2 HISTORY : The patient is a 78 year-old male with a history of . INDICATION The indication(s) include : unstable angina , dyspnea. [facility] Clinical Frailty Scale [facility] Clinical Frailty Scale: Moderately Frail Heart Failure Heart Failure: Yes If Yes, Newly Diagnosed: No If Yes, HF Type: Diastolic Systolic If Yes, NYHA Class: Class III CASE TECHNIQUE During this case, Fluoroscopy and low osmolar contrast were used for imaging. PROCEDURE NARRATIVE After appropriate informed consent the patient was brought to the cathode builder and prepped and draped in usual sterile fashion. The right groin was prepped and draped in usual sterile fashion. A 6 Czech sheath was placed in the right common femoral artery via the modified Seldinger technique. Diagnostic angiography was then performed with a JL4 and JR4 catheters. Bypass angiography was perfo rmed with a JR4 and TRACIE catheters. Findings: Left main is diffusely diseased. The proximal to mid LAD is diffusely diseased. The distal LAD is seen to fill via a TRACIE graft The left circumflex is diffusely diseased and small in caliber The first obtuse marginal is not visualized The second obtuse marginal is proximally occluded and fills via a saphenous vein graft The right coronary artery is diffusely diseased and occluded in the midsegment Bypass angiography: GRACIA to the LAD is widely patent without any anastomotic stenosis. SVG to OM 2 has a patent proximal stent a mid body 90% fibrotic lesion and a patent stent at the leve l of the distal graft anastomosis. SVG to RPDA has a 90% in-stent restenosis involving the ostial portion of the graft. Interventional technique: Given the patient's presentation and intervention was performed in the vein grafts due to significant unstable angina. Heparin was used for an to regulation to achieve an ACT greater than 250. Through a 6 Czech JR4 guide catheter the saphenous vein graft to the second obtuse marginal was engaged. A pr o-water wire was placed in the [place] OM 2. The lesion was direct stented with a 4.0 x 18 mm Alpine d rug-eluting stent. This was postdilated with a 4.5 x 12 mm noncompliant balloon at 20 ki. There was residual stenosis in the mid body of the stent but due to his the age of the bypass grafts further an oplasty was deferred out of concern for risk of perforation. Multiple doses of vasodilators were admi nistered and there is no evidence of reflow and final angiography revealed СВЕТЛАНА 3 flow. Attention was then turned to the saphenous vein graft to the RCA. There was significant difficulty en gaging the vein graft to the RCA due to the ostium of the stent protruding into the aorta. A pro-wate r wire was then able to be advanced into the mid body of the vein graft and this likely occurred to a stent strut and a second run through wire was then able to be advanced in intraluminal fashion after improved guide support from the first wire. Balloon angioplasty was then performed with a 3.5 x 12 m m trek balloon at 18 ki and there was 20% residual stenosis. Further intervention was deferred and there were no acute competitions. СВЕТЛАНА Flow СВЕТЛАНА Flow (Pre-Intervention): СВЕТЛАНА-3 СВЕТЛАНА Flow (Post-Intervention): СВЕТЛАНА-3 СВЕТЛАНА Flow СВЕТЛАНА Flow (Pre-Intervention): СВЕТЛАНА-2 СВЕТЛАНА Flow (Post-Intervention): СВЕТЛАНА-3 Conclusion 1. Severe three vessel coronary disease. 2. 3/3 bypass grafts patent 3. Severe ISR of the SVG to RCA stent treated witha 3.5/12 mm NC balloon 4. Denovo SVG to OM2 lesion treated with 4.0/18 mm [place] MEGAN, post-dilated with a 4.5/12 mm Trek ball oon Recommendations ASA 81mg daliy Ticagrelor 90mg bid. High dose statin therapy Aggressive risk factor modification Signed by : Nieves Benitez, Electronically Approved : 01/06/2019 08:07:03
[2019-01-06] MEDS: LISINOPRIL 10 MG TABLET PO SCH (14:24)
[2019-01-06 15:00] VITALS: BP 155/70
--- NOTE | 2019-01-06 15:20 | NUR ---
SS following for discharge planning. SS reviewed pt chart. Pt is from home and is currently on room air. SS will continue to follow for discharge planning.
[2019-01-06] MEDS ORDERED: GABAPENTIN 100 MG CAPSULE. PO SCH (16:00)
[2019-01-06] MEDS: RANOLAZINE 500 MG TAB.ER.12H PO SCH (16:35)
[2019-01-06 19:00] VITALS: BP 165/85
[2019-01-06] MEDS ORDERED: ATORVASTATIN CALCIUM 40 MG TABLET. PO SCH (21:00)
[2019-01-06] MEDS ORDERED: traZODone 100 MG TABLET. PO SCH (21:00)
[2019-01-06 23:00] VITALS: BP 181/87
[2019-01-07 00:07] VITALS: BP 184/81
[2019-01-07 07:00] VITALS: BP 149/92
[2019-01-07 08:33] LABS: CALCIUM 9.1 mg/dL (8.5-10.1); CREATININE 1.5 mg/dL (0.7-1.3); POTASSIUM 3.9 mmol/L (3.5-5.1)
[2019-01-07] MEDS ORDERED: ANTI-COAG MONITOR BY PHARMACY. MC PRN (09:00)
[2019-01-07] MEDS: ASPIRIN CHEWABLE 81 MG TABLET. PO SCH (09:13)
[2019-01-07] MEDS: TICAGRELOR 90 MG TABLET. PO SCH (09:13)
[2019-01-07] MEDS: LISINOPRIL 10 MG TABLET PO SCH (09:13)
[2019-01-07] MEDS: PANTOPRAZOLE 40 MG TABLET.DR. PO SCH (09:14)
[2019-01-07] MEDS: METOPROLOL SUCC 24HR ER 50 MG TAB.ER.24H. PO SCH (09:14)
[2019-01-07] MEDS: RANOLAZINE 500 MG TAB.ER.12H PO SCH (09:14)
[2019-01-07] MEDS: amLODIPine BESYLATE 5 MG TABLET PO SCH (09:15)
[2019-01-07] MEDS: RIVAROXABAN 10 MG TABLET. PO SCH (09:15)
[2019-01-07] MEDS: NITROGLYCERIN 0.4MG/HR PATCH. TD SCH (09:15)
[2019-01-07 11:00] VITALS: BP 157/75
--- NOTE | 2019-01-07 11:11 | PDOC ---
PROGRESS NOTES Subjective Subjective Patient seen and examined The patient is alert and feeling well. Objective Objective Vital Signs Date Time Temp Pulse Resp B/P (MAP) Pulse Ox O2 Delivery O2 Flow Rate FiO2 01/07/19 09:15 71 167/71 01/07/19 08:00 Room Air 01/07/19 07:00 98.1 16 93 98.1 01/05/19 18:30 2.0 Intake and Output 01/07/19 07:00 Intake Total 250 ml Output Total 1400 ml Balance -1150 ml Intake Oral 150 ml IV Total 100 ml Output Urine Total 1400 ml Physical Exam Abdomen: Normal bowel sounds Heart: Regular rate General: No acute distress Lungs: Clear to auscultation Assessment Assessment Problems Medical Problems: (1) Acute coronary syndrome Status: Acute (2) CAD (coronary artery disease) Status: Chronic (3) Chest pain Status: Acute (4) DM2 (diabetes mellitus, type 2) Status: Chronic (5) HLD (hyperlipidemia) Status: Chronic (6) HTN (hypertension) Status: Chronic (7) NSTEMI (non-ST elevated myocardial infarction) Status: Acute Assessment 1. NTSEMI: S/P PCI/MEGAN to severe ISR on SVG to RCA, denovo SVG to OM2 lesion with MEGAN. 3/3 bypass grafts patent 2. CAD: past CABG. PCI/complex stents 4 months ago. EF 55% 3. HTN: improved 4. HLP 5. DM2 6. Obesity 7. Noncompliance: reported by spouse and daughter Recommendations 1. 81 mg ASA, Brilinta and xarelto for 1 month then only brilinta and xarelto thereafter. Stop home plavix. Will be reviewed by his doctors. 2. Continue with secondary prevention measures. Will start on lisinopril for better BP control and with his DM. Start on Ranexa 3. CP largely resolved. On ranexa. Continue current NTG and norvasc 4. Cardiac rehab 5. Follow up with Dr. Wallace with cardiology in 1 month. Comment Review of Relevant I have reviewed the following items zaina (where applicable) has been applied. Labs Laboratory Tests Test 01/05/19 14:15 01/05/19 16:34 01/05/19 17:18 01/05/19 18:15 White Blood Count 9.8 x10^3/uL (4.0-11.0) Red Blood Count 4.16 x10^6/uL (4.30-5.70) Hemoglobin 13.4 g/dL (13.0-17.5) Hematocrit 39.7 % (39.0-53.0) Mean Corpuscular Volume 96 fL (79-100) Mean Corpuscular Hemoglobin 32 pg (25-35) Mean Corpuscular Hemoglobin Concent 34 g/dL (31-37) Red Cell Distribution Width 13.9 % (11.5-14.5) Platelet Count 256 x10^3/uL (140-400) Neutrophils (%) (Auto) 65 % (31-73) Lymphocytes (%) (Auto) 20 % (24-48) Monocytes (%) (Auto) 9 % (0-9) Eosinophils (%) (Auto) 5 % (0-3) Basophils (%) (Auto) 0 % (0-3) Neutrophils # (Auto) 6.4 x10^3/uL (1.8-7.7) Lymphocytes # (Auto) 2.0 x10^3/uL (1.0-4.8) Monocytes # (Auto) 0.9 x10^3/uL (0.0-1.1) Eosinophils # (Auto) 0.5 x10^3/uL (0.0-0.7) Basophils # (Auto) 0.0 x10^3/uL (0.0-0.2) Prothrombin Time 11.9 SEC (11.7-14.0) Prothromb Time International Ratio 0.9 (0.8-1.1) Sodium Level 144 mmol/L (136-145) Potassium Level 3.5 mmol/L (3.5-5.1) Chloride Level 105 mmol/L (98-107) Carbon Dioxide Level 29 mmol/L (21-32) Anion Gap 10 (6-14) Blood Urea Nitrogen 11 mg/dL (8-26) Creatinine 1.4 mg/dL (0.7-1.3) Estimated GFR (Cockcroft-Gault) 48.8 BUN/Creatinine Ratio 8 (6-20) Glucose Level 192 mg/dL (70-99) Calcium Level 9.7 mg/dL (8.5-10.1) Magnesium Level 2.2 mg/dL (1.8-2.4) Total Bilirubin 0.6 mg/dL (0.2-1.0) Aspartate Amino Transf (AST/SGOT) 26 U/L (15-37) Alanine Aminotransferase (ALT/SGPT) 24 U/L (16-63) Alkaline Phosphatase 85 U/L (46-116) Creatine Kinase 209 U/L (39-308) Creatine Kinase MB (Mass) 2.8 ng/mL (0.0-3.6) Creatine Kinase MB Relative Index 1.3 % (0-4) Troponin I Quantitative 0.326 ng/mL (0.000-0.055) 1.384 ng/mL (0.000-0.055) OQ-Tad-N-Type Natriuretic Peptide 1172 pg/mL (0-449) Total Protein 8.9 g/dL (6.4-8.2) Albumin 4.0 g/dL (3.4-5.0) Albumin/Globulin Ratio 0.8 (1.0-1.7) Lipase 79 U/L (73-393) Activated Clotting Time 316 sec (92-181) 320 sec (92-181) Test 01/05/19 20:33 01/05/19 22:30 01/06/19 08:34 01/06/19 10:30 Glucose (Fingerstick) 99 mg/dL (70-99) 120 mg/dL (70-99) Troponin I Quantitative 2.247 ng/mL (0.000-0.055) White Blood Count 9.6 x10^3/uL (4.0-11.0) Red Blood Count 3.69 x10^6/uL (4.30-5.70) Hemoglobin 11.9 g/dL (13.0-17.5) Hematocrit 35.1 % (39.0-53.0) Mean Corpuscular Volume 95 fL (79-100) Mean Corpuscular Hemoglobin 32 pg (25-35) Mean Corpuscular Hemoglobin Concent 34 g/dL (31-37) Red Cell Distribution Width 13.6 % (11.5-14.5) Platelet Count 219 x10^3/uL (140-400) Sodium Level 145 mmol/L (136-145) Potassium Level 3.1 mmol/L (3.5-5.1) Chloride Level 108 mmol/L (98-107) Carbon Dioxide Level 28 mmol/L (21-32) Anion Gap 9 (6-14) Blood Urea Nitrogen 11 mg/dL (8-26) Creatinine 1.3 mg/dL (0.7-1.3) Estimated GFR (Cockcroft-Gault) 53.1 Glucose Level 119 mg/dL (70-99) Calcium Level 9.0 mg/dL (8.5-10.1) Test 01/06/19 13:40 01/07/19 08:05 01/07/19 08:27 Troponin I Quantitative 1.031 ng/mL (0.000-0.055) Sodium Level 145 mmol/L (136-145) Potassium Level 3.9 mmol/L (3.5-5.1) Chloride Level 107 mmol/L (98-107) Carbon Dioxide Level 30 mmol/L (21-32) Anion Gap 8 (6-14) Blood Urea Nitrogen 15 mg/dL (8-26) Creatinine 1.5 mg/dL (0.7-1.3) Estimated GFR (Cockcroft-Gault) 45.0 Glucose Level 131 mg/dL (70-99) Calcium Level 9.1 mg/dL (8.5-10.1) Glucose (Fingerstick) 138 mg/dL (70-99) Laboratory Tests Test 01/06/19 13:40 01/07/19 08:05 01/07/19 08:27 Troponin I Quantitative 1.031 ng/mL (0.000-0.055) Sodium Level 145 mmol/L (136-145) Potassium Level 3.9 mmol/L (3.5-5.1) Chloride Level 107 mmol/L (98-107) Carbon Dioxide Level 30 mmol/L (21-32) Anion Gap 8 (6-14) Blood Urea Nitrogen 15 mg/dL (8-26) Creatinine 1.5 mg/dL (0.7-1.3) Estimated GFR (Cockcroft-Gault) 45.0 Glucose Level 131 mg/dL (70-99) Calcium Level 9.1 mg/dL (8.5-10.1) Glucose (Fingerstick) 138 mg/dL (70-99) Medications Current Medications Nitroglycerin (Nitrostat) 0.4 mg PRN Q5MIN PRN SL CP RATING > 110 Last administered on 01/06/19at 02:45; Start 01/05/19 at 14:15; Stop 01/06/19 at 10:01; Status DC Metoprolol Tartrate (Lopressor Vial) 5 mg 1X ONCE IVP Last administered on 01/05/19at 14:43; Start 01/05/19 at 14:15; Stop 01/05/19 at 14:20; Status DC Heparin Sodium (Porcine) (Heparin Sodium) 4,000 unit 1X ONCE IV Last administered on 01/05/19at 15:23; Start 01/05/19 at 15:15; Stop 01/05/19 at 15:16; Status DC Heparin Sodium/ Dextrose 500 ml @ 20 mls/hr CONT PRN IV SEE COMMENTS Last a dministered on 01/05/19at 15:25; Start 01/05/19 at 15:15; Stop 01/06/19 at 10:07; Status DC Iodixanol (Visipaque 320) 100 ml STK-MED ONCE .ROUTE ; Start 01/05/19 at 15:55; Stop 01/05/19 at 15:55; Status DC Lidocaine HCl (Lidocaine 1% 20ml Vial) 20 ml STK-MED ONCE .ROUTE ; Start 01/05/19 at 15:55; Stop 01/05/19 at 15:55; Status DC Heparin Sodium/ Sodium Chloride 1,000 ml @ As Directed STK-MED ONCE .ROUTE ; Start 01/05/19 at 15:55; Stop 01/05/19 at 15:56; Status DC Midazolam HCl (Versed) 2 mg STK-MED ONCE .ROUTE ; Start 01/05/19 at 15:58; Stop 01/05/19 at 15:58; Status DC Fentanyl Citrate (Fentanyl 2ml Vial) 100 mcg STK-MED ONCE .ROUTE ; Start 01/05/19 at 15:58; Stop 01/05/19 at 15:58; Status DC Heparin Sodium (Porcine) (Heparin Sodium) 10,000 unit STK-MED ONCE .ROUTE ; Start 01/05/19 at 16:29; Stop 01/05/19 at 16:30; Status DC Iodixanol (Visipaque 320) 100 ml STK-MED ONCE .ROUTE ; Start 01/05/19 at 16:31; Stop 01/05/19 at 16:31; Status DC Sodium Nitroprusside (Nitropress) 50 mg STK-MED ONCE IV ; Start 01/05/19 at 16:32; Stop 01/05/19 at 16:33; Status DC Verapamil HCl (Verapamil) 5 mg STK-MED ONCE .ROUTE ; Start 01/05/19 at 16:32; Stop 01/05/19 at 16:33; Status DC Nitroglycerin (Nitroglycerin) 200 mcg 1X ONCE IART ; Start 01/05/19 at 17:30; Stop 01/05/19 at 17:36; Status DC Verapamil HCl (Verapamil) 2.5 mg 1X ONCE IART ; Start 01/05/19 at 17:30; Stop 01/05/19 at 17:36; Status DC Heparin Sodium/ Sodium Chloride (HEPARIN for ARTERIAL LINE FLUSH) 1,000 unit 1X ONCE IART ; Start 01/05/19 at 17:30; Stop 01/05/19 at 17:36; Status DC Midazolam HCl (Versed) 2 mg 1X ONCE IV ; Start 01/05/19 at 17:30; Stop 01/05/19 at 17:36; Status DC Fentanyl Citrate (Fentanyl 2ml Vial) 100 mcg 1X ONCE IV ; Start 01/05/19 at 17:30; Stop 01/05/19 at 17:36; Status DC Iodixanol (Visipaque 320) 189 ml 1X ONCE IART ; Start 01/05/19 at 17:30; Stop 01/05/19 at 17:36; Status DC Ticagrelor (Brilinta) 180 mg 1X ONCE PO ; Start 01/05/19 at 17:30; Stop 01/05/19 at 17:36; Status DC Heparin Sodium (Porcine) (Heparin Sodium) 7,000 unit 1X ONCE IV ; Start 01/05/19 at 17:30; Stop 01/05/19 at 17:36; Status DC Lidocaine HCl (Lidocaine 1% 20ml Vial) 20 ml 1X ONCE INJ ; Start 01/05/19 at 17:30; Stop 01/05/19 at 17:36; Status DC Sodium Nitroprusside (Nipride) 400 mcg 1X ONCE INT CORON ; Start 01/05/19 at 17:30; Stop 01/05/19 at 17:36; Status DC Labetalol HCl (Normodyne Iv Push) 20 mg PRN Q2HR PRN IVP HYPERTENSION; Start 01/06/19 at 02:30 Alprazolam (Xanax) 0.5 mg PRN Q8HRS PRN PO ANXIETY / AGITATION Last administered on 01/06/19at 02:55; Start 01/06/19 at 02:30 Trazodone HCl (Desyrel) 25 mg 1X ONCE PO Last administered on 01/06/19at 02:55; Start 01/06/19 at 03:00; Stop 01/06/19 at 03:01; Status DC Acetaminophen (Tylenol) 650 mg PRN Q6HRS PRN PO MILD PAIN / TEMP Last administered on 01/06/19 02:55; Start 01/06/19 at 02:45 Amlodipine Besylate (Norvasc) 5 mg DAILY PO Last administered on 01/07/19 09:15; Start 01/06/19 at 11:00 Aspirin (Children'S Aspirin) 81 mg DAILY PO Last administered on 01/07/19 09:13; Start 01/06/19 at 11:00 Atorvastatin Calcium (Lipitor) 80 mg QHS PO Last administered on 01/06/19 21:22; Start 01/06/19 at 21:00 Gabapentin (Neurontin) 100 mg DAILY16 PO Last administered on 01/06/19 16:33; Start 01/06/19 at 16:00 Metoprolol Succinate (Toprol Xl) 50 mg DAILY PO Last administered on 01/07/19 09:14; Start 01/06/19 at 11:00 Nitroglycerin (Nitro-Dur 0.4mg) 1 patch DAILY TD Last administered on 01/07/19 09:15; Start 01/06/19 at 11:00 Nitroglycerin (Nitrostat) 0.4 mg PRN Q5MIN PRN SL CHEST PAIN Last administered on 01/06/19 14:25; Start 01/06/19 at 10:00 Ticagrelor (Brilinta) 90 mg BID PO Last administered on 01/07/19 09:13; Start 01/06/19 at 11:00 Trazodone HCl (Desyrel) 100 mg QHS PO Last administered on 01/06/19 21:22; Start 01/06/19 at 21:00 Glipizide (Glucotrol Er) 5 mg DAILY08 PO ; Start 01/07/19 at 12:00 Pantoprazole Sodium (Protonix) 40 mg DAILYAC PO Last administered on 01/07/19 09:14; Start 01/06/19 at 11:30 Rivaroxaban (Xarelto) 2.5 mg BID PO Last administered on 01/07/19 09:15; Start 01/06/19 at 11:00 Ondansetron HCl (Zofran Odt) 4 mg PRN Q6HRS PRN PO NAUSEA/VOMITING Last administered on 01/06/19at 10:24; Start 01/06/19 at 10:15 Potassium Chloride (Klor-Con) 40 meq 1X ONCE PO Last administered on 01/06/19at 12:10; Start 01/06/19 at 11:45; Stop 01/06/19 at 11:46; Status DC Verapamil HCl (Verapamil) 5 mg STK-MED ONCE .ROUTE ; Start 01/05/19 at 17:00; Stop 01/06/19 at 12:57; Status DC Ticagrelor (Brilinta) 180 mg STK-MED ONCE .ROUTE ; Start 01/05/19 at 17:00; Stop 01/06/19 at 12:57; Status DC Lisinopril (Prinivil) 10 mg DAILY PO Last administered on 01/07/19at 09:13; Start 01/06/19 at 13:30 Ranolazine (Ranexa) 500 mg BID PO Last administered on 01/07/19at 09:14; Start 01/06/19 at 17:00 Info (Anti-Coagulation Monitoring By Pharmacy) 1 each PRN DAILY PRN MC SEE COMMENTS Last administered on 01/07/19at 09:00; Start 01/07/19 at 09:00 Active Scripts Active Reported Xarelto (Rivaroxaban) 2.5 Mg Tablet 2.5 Mg PO BID Brilinta (Ticagrelor) 90 Mg Tablet 90 Mg PO BID NITRO-DUR 0.4mg/hr (Nitroglycerin) 1 Each Patch.td24 1 Each TD DAILY Nitrostat (Nitroglycerin) 0.4 Mg Tab.subl 0.4 Mg SL PRN Q5MIN PRN Gabapentin (Gabapentin) 100 Mg Capsule 100 Mg PO DAILY16 Aspirin 81 Mg Tab.chew 1 Tab PO DAILY Amlodipine Besylate 5 Mg Tablet 5 Mg PO DAILY Trazodone Hcl 100 Mg Tablet 1 Tab PO QHS Omeprazole 40 Mg Capsule.dr 1 Cap PO DAILY Metoprolol Tartrate 50 Mg Tablet 1 Tab PO DAILY Glipizide Er (Glipizide) 5 Mg Tab.er.24 1 Tab PO DAILY Atorvastatin Calcium 40 Mg Tablet 2 Tab PO DAILY Vitals/I & O Vital Sign - Last 24 Hours 01/06/19 01/06/19 01/06/19 01/06/19 13:16 14:24 14:25 15:00 Temp 97.9 97.9 Pulse 72 71 70 78 Resp 21 B/P (MAP) 170/78 147/64 147/64 155/70 (98) Pulse Ox 97 01/06/19 01/06/19 01/06/19 01/06/19 16:35 19:00 20:00 23:00 Temp 97.9 97.9 Pulse 73 80 74 Resp 20 18 B/P (MAP) 158/77 165/85 (111) 181/87 (118) Pulse Ox 93 94 O2 Delivery Room Air Room Air Room Air 01/07/19 01/07/19 01/07/19 01/07/19 00:07 03:39 07:00 08:00 Temp 97.9 98.1 97.9 98.1 Pulse 80 67 71 Resp 20 22 16 B/P (MAP) 184/81 (115) 149/92 (111) Pulse Ox 93 98 93 O2 Delivery Room Air Room Air Room Air Room Air 01/07/19 01/07/19 01/07/19 01/07/19 09:13 09:14 09:14 09:15 Pulse 73 71 74 71 B/P (MAP) 167/71 167/71 167/71 167/71 Intake and Output 01/06/19 01/06/19 01/07/19 15:00 23:00 07:00 Intake Total 150 ml 100 ml 0 ml Output Total 450 ml 450 ml 500 ml Balance -300 ml -350 ml -500 ml DYLAN MARC MD Jan 07, 2019 11:11
--- NOTE | 2019-01-07 11:16 | PDOC ---
[facility] PROGRESS NOTE Chief Complaint Chief Complaint Chest pain ACS History of Present Illness History of Present Illness 01/07/19 Pt was seen and examined in the ICU Pt appears in good mood Accompanied by spouse D/w RN who reports that Cardiology gives ok for discharge 01/06/19 Pt was seen and examined in the ICU Pt is still confused and a poor historian and daughter were in the room and we discussed his cardiac stent and angioplasty. JAMIE RN Vitals/I&O Vitals/I&O: Vital Signs Date Time Temp Pulse Resp B/P (MAP) Pulse Ox O2 Delivery O2 Flow Rate FiO2 01/07/19 11:00 62 18 157/75 (102) 95 Room Air 01/07/19 07:00 98.1 98.1 I & O 01/06/19 01/06/19 01/07/19 15:00 23:00 07:00 Intake Total 150 ml 100 ml 0 ml Output Total 450 ml 450 ml 500 ml Balance -300 ml -350 ml -500 ml Physical Exam General: No acute distress Heart: Regular rate Abdomen: Normal bowel sounds Extremities: No cyanosis Skin: No significant lesion Labs Labs: Laboratory Tests Test 01/06/19 13:40 01/07/19 08:05 01/07/19 08:27 Troponin I Quantitative 1.031 ng/mL (0.000-0.055) Sodium Level 145 mmol/L (136-145) Potassium Level 3.9 mmol/L (3.5-5.1) Chloride Level 107 mmol/L (98-107) Carbon Dioxide Level 30 mmol/L (21-32) Anion Gap 8 (6-14) Blood Urea Nitrogen 15 mg/dL (8-26) Creatinine 1.5 mg/dL (0.7-1.3) Estimated GFR (Cockcroft-Gault) 45.0 Glucose Level 131 mg/dL (70-99) Calcium Level 9.1 mg/dL (8.5-10.1) Glucose (Fingerstick) 138 mg/dL (70-99) Review of Systems Review of Systems: Pt denies PEREZ Pt denies n/v/d Assessment and Plan Assessmemt and Plan Problems Medical Problems: (1) Acute coronary syndrome Status: Acute (2) CAD (coronary artery disease) Status: Chronic (3) Chest pain Status: Acute (4) DM2 (diabetes mellitus, type 2) Status: Chronic (5) HLD (hyperlipidemia) Status: Chronic (6) HTN (hypertension) Status: Chronic (7) NSTEMI (non-ST elevated myocardial infarction) Status: Acute Assessment Chest pain NSTEMI Acute coronary syndrome Stent placement DM2 Htn Hyperlipidemia Plan Discharge in progress Wound care DVT prophylaxis Reconcile Home meds Left prescriptions for Renexa, lisinopril, Xarelto, Metoprolol, Norvasc Appreciate input from cardiology Full code Comment Review of Relevant I have reviewed the following items zaina (where applicable) has been applied. Medications: Current Medications Medications (Trade) Dose Ordered Sig/Dede Route PRN Reason Start Time Stop Time Status Last Admin Dose Admin Atorvastatin Calcium (Lipitor) 80 mg QHS PO 01/06/19 21:00 01/06/19 21:22 Gabapentin (Neurontin) 100 mg DAILY16 PO 01/06/19 16:00 01/06/19 16:33 Trazodone HCl (Desyrel) 100 mg QHS PO 01/06/19 21:00 01/06/19 21:22 Pantoprazole Sodium (Protonix) 40 mg DAILYAC PO 01/06/19 11:30 01/07/19 09:14 Potassium Chloride (Klor-Con) 40 meq 1X ONCE PO 01/06/19 11:45 01/06/19 11:46 DC 01/06/19 12:10 Lisinopril (Prinivil) 10 mg DAILY PO 01/06/19 13:30 01/07/19 09:13 Ranolazine (Ranexa) 500 mg BID PO 01/06/19 17:00 01/07/19 09:14 Info (Anti-Coagulation Monitoring By Pharmacy) 1 each PRN DAILY PRN MC SEE COMMENTS 01/07/19 09:00 01/07/19 09:00 JORDIN MARADIAGA III DO Jan 07, 2019 11:16
--- NOTE | 2019-01-07 11:20 | NUR ---
Discharge Note: YOHANNES MARIA Discharge instructions and discharge home medications reviewed with Family Member/Patient and a copy given. All questions have been answered and understanding verbalized. The following instructions and handouts were given: Four new scripts to be filled today for Lisinopril, Xarelto, Brilinta, and Renexa. Discontinued lines and drains: No IV access that needed taken out. Patient discharged home with daughter. All questions answered.
[2019-01-07] MEDS ORDERED: glipiZIDE ER 2.5 MG TAB.ER.24 PO SCH (12:00)
--- NOTE | 2019-01-08 12:03 | DS ---
DATE OF DISCHARGE: 01/07/2019 ADMISSION DIAGNOSIS: Chest pain. DISCHARGE DIAGNOSIS: Status post cardiac stent and 1 angioplasty. HOSPITAL COURSE: The patient is a pleasant 78-year-old male who presented with chest pain. He had 3 previous stents. We took him [facility] emerg[facility]. He did get one more stent and Dr. Galdamez also did an angioplasty on another artery without a stent. Next day, he did well. We discharged to home with close outpatient followup. DISPOSITION: Home. ACTIVITY: As tolerated. DIET: Cardiac. MEDICATIONS: Please see the MRAD. TOTAL TIME: 32 minutes. JORDIN MARADIAGA DO DR: Sarah JOB#: [id number] / [id number]
== END 2019-01-07 11:20 | disposition home or self-care (01) | DRG 246 ==
LOC: ER 14:03 → 1 WEST ICU 15:20
PROVIDERS: ADMIT Family Medicine; ATTEND Family Medicine
PROC: 4A023N7 Measurement of Cardiac Sampling and Pressure, Left Heart, Percutaneous Approach (ICD-10-PCS; principal; 2019-01-05)
PROC: 027034Z Dilation of Coronary Artery, One Artery with Drug-eluting Intraluminal Device, Percutaneous Approach (ICD-10-PCS; 2019-01-05)
PROC: 02703ZZ Dilation of Coronary Artery, One Artery, Percutaneous Approach (ICD-10-PCS; 2019-01-05)
PROC: B2111ZZ Fluoroscopy of Multiple Coronary Arteries using Low Osmolar Contrast (ICD-10-PCS; 2019-01-05)
PROC: B2181ZZ Fluoroscopy of Left Internal Mammary Bypass Graft using Low Osmolar Contrast (ICD-10-PCS; 2019-01-05)
PROC: B2131ZZ Fluoroscopy of Multiple Coronary Artery Bypass Grafts using Low Osmolar Contrast (ICD-10-PCS; 2019-01-05)
DX: T82.855A Stenosis of coronary artery stent, initial encounter (principal); I21.4 Non-ST elevation (NSTEMI) myocardial infarction; I25.110 Atherosclerotic heart disease of native coronary artery with unstable angina pectoris; T82.858A Stenosis of other vascular prosthetic devices, implants and grafts, initial encounter; E78.00 Pure hypercholesterolemia, unspecified; E11.22 Type 2 diabetes mellitus with diabetic chronic kidney disease; I12.9 Hypertensive chronic kidney disease with stage 1 through stage 4 chronic kidney disease, or unspecified chronic kidney disease; Z96.653 Presence of artificial knee joint, bilateral; M19.90 Unspecified osteoarthritis, unspecified site; E78.5 Hyperlipidemia, unspecified; E66.9 Obesity, unspecified; J45.909 Unspecified asthma, uncomplicated; N18.9 Chronic kidney disease, unspecified; Y83.2 Surgical operation with anastomosis, bypass or graft as the cause of abnormal reaction of the patient, or of later complication, without mention of misadventure at the time of the procedure; Z95.5 Presence of coronary angioplasty implant and graft; Z95.1 Presence of aortocoronary bypass graft; Z88.0 Allergy status to penicillin; Z88.6 Allergy status to analgesic agent; Z88.5 Allergy status to narcotic agent; Z82.49 Family history of ischemic heart disease and other diseases of the circulatory system; Z68.29 Body mass index [BMI] 29.0-29.9, adult; Y92.89 Other specified places as the place of occurrence of the external cause; Z91.19 Patient's noncompliance with other medical treatment and regimen
CPT/HCPCS: 92920; 92938; 93458; G0269; 36415; 71045; 80048; 80053; 82553; 82962; 83690; 83735; 83880; 84484; 85025; 85027; 85347; 85610; 93005; 93306; 96365; 96375; 96376; 99152; 99153; C1725; C1760; C1769; C1874; C1892; J1644; J3490; Q0162; 99291-25; C1713; C1771; G0378